=== PATIENT | female | born 1990 | race Caucasian/White ===

== ENCOUNTER 2016-09-08 15:28 | Emergency (ER) | payer MEDICAID ==
--- NOTE | 2016-09-08 15:51 | ER Document Report ---
ED Medical Screen (RME) - General Stated Complaint: POSSIBLE FLU Notes: 26 yo female with flu like symptoms x 4 days. no fever, + bodyaches and cough. 9 wks . TRAVEL OUTSIDE OF THE [place] IN LAST 30 DAYS: No - Related Data Allergies/Adverse Reactions: No Known Allergies Allergy (Verified 05/08/15 12:32) Past Medical History - Immunizations Hx Diphtheria, Pertussis, Tetanus Vaccination: Yes Physical Exam - Vital signs Vitals: Temp Pulse Resp BP Pulse Ox 99.6 F 104 H 14 108/64 100 09/08/16 15:40 09/08/16 15:40 09/08/16 15:40 09/08/16 15:40 09/08/16 15:40 Course - Vital Signs Vital signs: Temp Pulse Resp BP Pulse Ox 99.6 F 104 H 14 108/64 100 09/08/16 15:40 09/08/16 15:40 09/08/16 15:40 09/08/16 15:40 09/08/16 15:40
--- NOTE | 2016-09-08 17:07 | ER Document Report ---
HPI - HPI Patient complains to provider of: cough, bodayaches Onset: Other - since tuesday Onset/Duration: Gradual Quality of pain: Achy Pain Level: 4 Context: 26 yo female 9 weeks is c/o head congestion, cough, no fever since tuesday. No abd. pain or vaginal bleeding. No dusuria. Associated Symptoms: None Exacerbated by: Denies Relieved by: Denies Similar symptoms previously: Yes Recently seen / treated by doctor: No - ROS ROS below otherwise negative: Yes Systems Reviewed and Negative: Yes All other systems reviewed and negative - REPRODUCTIVE LMP: Reproductive: REPORTS: : - DERM Skin Color: Normal Past Medical History - General Information source: Patient - Social History Smoking Status: Never Smoker Chew tobacco use (# tins/day): No Drug Abuse: None Lives with: Spouse/Significant other Family History: Reviewed & Not Pertinent Patient has suicidal ideation: No Patient has homicidal ideation: No - Medical History Medical History: Negative Renal/ Medical History: Denies: Hx Peritoneal Dialysis Surgical Hx: Negative - Immunizations Hx Diphtheria, Pertussis, Tetanus Vaccination: Yes Hx Pneumococcal Vaccination: 07/25/00 Vertical Provider Document - CONSTITUTIONAL Agree With Documented VS: Yes Exam Limitations: No Limitations General Appearance: No Apparent Distress - INFECTION CONTROL TRAVEL OUTSIDE OF THE [place] IN LAST 30 DAYS: No - HEENT HEENT: Normocephalic, PERRLA, Pharyngeal Erythema. negative: Conjuctival Injection, Tympanic Membrane Red, Tympanic Membrane Bulging - NECK Neck: Supple. negative: Lymphadenopathy-Left, Lymphadenopathy-Right - RESPIRATORY Respiratory: Breath Sounds Normal, No Respiratory Distress O2 Sat by Pulse Oximetry: 100 - CARDIOVASCULAR Cardiovascular: Regular Rate, Regular Rhythm - GI/ABDOMEN Gastrointestinal: Abdomen Soft, Abdomen Non-Tender, No Organomegaly - MUSCULOSKELETAL/EXTREMETIES Musculoskeletal/Extremeties: MAJOHNATHAN, FROM - NEURO Level of Consciousness: Awake, Alert - DERM Integumentary: Warm, Dry, No Rash Course - Vital Signs Vital signs: Temp Pulse Resp BP Pulse Ox 99.6 F 104 H 14 108/64 100 09/08/16 15:40 09/08/16 15:40 09/08/16 15:40 09/08/16 15:40 09/08/16 15:40 Discharge - Discharge Clinical Impression: upper respiratory infection, Condition: Good Disposition: HOME, SELF-CARE Instructions: Acetaminophen, Upper Respiratory Illness ([facility]), 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
[2016-09-08 18:07] VITALS: BP 120/70
== END 2016-09-08 18:10 | disposition home or self-care (01) ==
LOC: ER 15:28
DX: O26.91 Pregnancy related conditions, unspecified, first trimester (principal); J06.9 Acute upper respiratory infection, unspecified; M79.1 Myalgia; Z3A.09 9 weeks gestation of pregnancy
CPT/HCPCS: 99283

== ENCOUNTER 2017-03-02 11:58 | Outpatient (CLI) | payer MEDICAID ==
[2017-03-02 12:55] LABS: APPEARANCE,URINE CLEAR; BILIRUBIN,URINE NEGATIVE (NEGATIVE); GLUCOSE, URINE NEGATIVE (NEGATIVE); KETONES,URINE NEGATIVE (NEGATIVE); LEUKOCYTE ESTERASE,URINE TRACE (NEGATIVE); NITRITE,URINE NEGATIVE (NEGATIVE); PROTEIN,URINE NEGATIVE (NEGATIVE); URINE SPECIFIC GRAVITY 1.002; UROBILINOGEN,URINE NEGATIVE mg/dL (<2.0)
[2017-03-02 13:10] LABS: URINE BARBITURATES SCREEN NEGATIVE; URINE METHADONE SCREEN NEGATIVE; URINE OPIATES LOW NEGATIVE; URINE PHENCYCLIDINE SCREEN NEGATIVE
[2017-03-02] MEDS ORDERED: ACETAMINOPHEN 325 MG TABLET PO ONE (14:36)
[2017-03-02] MEDS ORDERED: ACETAMINOPHEN 325 MG TABLET ONE (14:47)
--- NOTE | 2017-03-02 14:59 | Non Stress Test Report ---
Non Stress Test Datetime Report Generated by CPN: 03/02/2017 14:59 DEMOGRAPHIC EGA NST: 33.3 INDICATION Indication for Study: Ordered by Provider Indication for Study (NST) Other: labor check MONITORING Monitor Explained: Monitor Explained; Test Explained; Patient Verbalized Understanding Time on Monitor: 03/02/2017 12:30 Time off Monitor: 03/02/2017 14:36 NST Duration: 126 NST INTERVENTIONS NST Interventions: PO Hydration; Reposition Patient Physician Notified NST: PPeter Salguero CNM BABY A: [id number] BABY A Movement : Present Contraction Frequency : rare FHR Baseline : 135 Accelerations : 15X15 Decelerations : None Variability : Moderate 6-25bpm NST Review: Meets Criteria for Reactive NST NST Review and Verified By : Laurel Jack RN NST Results: Reactive NST COMMENTS NST Comments: Per P. Salguero CNM ok to d/c NST REPORT Report Trigger: Send Report
== END 2017-03-02 15:03 | disposition home or self-care (01) ==
LOC: LC 11:58
PROVIDERS: ATTEND Obstetrics & Gynecology
PROC: 4A1HXCZ Monitoring of Products of Conception, Cardiac Rate, External Approach (ICD-10-PCS; principal; 2017-03-02)
DX: O47.03 False labor before 37 completed weeks of gestation, third trimester (principal); Z3A.33 33 weeks gestation of pregnancy
CPT/HCPCS: 59025; 87210; 81001; 80307; Q0114; J3490

== ENCOUNTER 2017-04-07 19:15 | Outpatient (CLI) | payer MEDICAID ==
[2017-04-07 19:46] LABS: APPEARANCE,URINE SLIGHTLY-CLOUDY; BILIRUBIN,URINE NEGATIVE (NEGATIVE); GLUCOSE, URINE NEGATIVE (NEGATIVE); KETONES,URINE NEGATIVE (NEGATIVE); LEUKOCYTE ESTERASE,URINE MODERATE (NEGATIVE); NITRITE,URINE NEGATIVE (NEGATIVE); PROTEIN,URINE NEGATIVE (NEGATIVE); UROBILINOGEN,URINE NEGATIVE mg/dL (<2.0)
[2017-04-07 20:08] LABS: URINE BARBITURATES SCREEN NEGATIVE; URINE METHADONE SCREEN NEGATIVE; URINE OPIATES LOW NEGATIVE; URINE PHENCYCLIDINE SCREEN NEGATIVE
[2017-04-07 20:09] LABS: AMNISURE (ROM) NEGATIVE (NEGATIVE)
== END 2017-04-07 20:52 | disposition home or self-care (01) ==
LOC: LC 19:15
PROVIDERS: ATTEND Student in an Organized Health Care Education/Training Program
PROC: 4A1HXCZ Monitoring of Products of Conception, Cardiac Rate, External Approach (ICD-10-PCS; principal; 2017-04-07)
DX: Z34.93 Encounter for supervision of normal pregnancy, unspecified, third trimester (principal); Z36 Encounter for antenatal screening of mother; Z3A.37 37 weeks gestation of pregnancy
CPT/HCPCS: 59025; 80307; 81005; 84112

== ENCOUNTER 2017-04-19 03:32 | Inpatient (IN) | payer MEDICAID ==
[2017-04-19] MEDS ORDERED: LIDOCAINE 1% INJ-PF (10 MG/ML) 30 ML SDV ONE (03:46)
[2017-04-19] MEDS ORDERED: OXYTOCIN/NORMAL SALINE 0 UNIT/0 ML RTUINJ ONE (03:46)
[2017-04-19] MEDS ORDERED: MISOPROSTOL 0.2 MG TABLET ONE (03:46)
[2017-04-19] MEDS ORDERED: PENICILLIN G-K 5 MILLION UNIT VIAL ONE (03:46)
[2017-04-19] MEDS ORDERED: OXYTOCIN 10 UNIT/ML VIAL ONE (03:47)
[2017-04-19] MEDS ORDERED: ACETAMINOPHEN WITH CODEINE #3 TABLET ONE (04:27)
[2017-04-19] MEDS ORDERED: IBUPROFEN 800 MG TABLET ONE (04:27)
[2017-04-19] MEDS ORDERED: NA PHOS,M-B/NA PHOS,DI-BA (ADULT) 133 ML ENEMA PR PRN (04:31)
[2017-04-19] MEDS ORDERED: ACETAMINOPHEN WITH CODEINE #3 TABLET PO PRN ×2 (04:31)
[2017-04-19] MEDS ORDERED: DIPHENHYDRAMINE HCL 25 MG CAPSULE PO PRN (04:31)
[2017-04-19] MEDS ORDERED: OXYTOCIN/NORMAL SALINE 20 UNIT/1,000 ML RTUINJ IV PRN (04:31)
[2017-04-19] MEDS ORDERED: PROMETHAZINE HCL 25 MG TABLET PO PRN (04:31)
[2017-04-19] MEDS ORDERED: ZOLPIDEM TARTRATE 5 MG TABLET PO PRN (04:31)
[2017-04-19] MEDS ORDERED: PSEUDOEPHEDRINE HCL 30 MG TABLET PO PRN (04:31)
[2017-04-19] MEDS ORDERED: GLYCERIN/WITCH HAZEL LEAF 1 EACH MED..PAD TP PRN (04:31)
[2017-04-19] MEDS ORDERED: ACETAMINOPHEN 650 MG SUPP.RECT PR PRN (04:31)
[2017-04-19] MEDS ORDERED: PROMETHAZINE HCL 25 MG SUPP.RECT PR PRN (04:31)
[2017-04-19] MEDS ORDERED: MAGNESIUM HYDROXIDE SUSP 30 ML UDCUP PO PRN (04:31)
[2017-04-19] MEDS ORDERED: DIBUCAINE 1% OINTMENT 28 GM TP PRN (04:31)
[2017-04-19] MEDS ORDERED: PROMETHAZINE HCL INJ 25 MG/1 ML VIAL IV PRN (04:31)
[2017-04-19] MEDS ORDERED: DIPH/PERTUSS(ACELL)/TETANUS VAC/PF 0.5 ML SYR (>=10YO) IM PRN (04:31)
[2017-04-19] MEDS ORDERED: BENZOCAINE/MENTHOL AEROSOL SPRAY 56 ML TOP PRN (04:31)
[2017-04-19] MEDS ORDERED: MEASLES,MUMPS&RUBELLA VACC/PF 0.5 ML VIAL SUBCUT PRN (04:31)
[2017-04-19 04:34] LABS: ABSOLUTE EOSINOPHILS # (AUTO) 0.1 10^3/uL (0.0-0.6); ABSOLUTE MONOCYTES (AUTO) 0.9 10^3/uL (0.1-1.4); ABSOLUTE NEUT (AUTO) 4.7 10^3/uL (1.7-8.2); BASOPHILS % (AUTO) 0.4 % (0-2); EOSINOPHILS % (AUTO) 1.2 % (0-6); HEMOGLOBIN 13.4 g/dL (12.0-15.5); HGB HCT DIFFERENCE 0.2; LYMPHOCYTES % (AUTO) 41.1 % (13-45); MEAN CORPUSCULAR HEMOGLOBIN 27.8 pg (27.0-33.4); MEAN CORPUSCULAR HGB CONC 33.4 g/dL (32.0-36.0); MEAN CORPUSCULAR VOLUME 83 fl (80-97); MONOCYTES % (AUTO) 9.4 % (3-13); SEGMENTED NEUTROPHILS % (AUTO) 47.9 % (42-78); WHITE BLOOD COUNT 9.7 10^3/uL (4.0-10.5)
--- NOTE | 2017-04-19 06:17 | Admission Physical ---
Datetime Report Generated by CPN: 04/19/2017 06:17 CURRENT ADMISSION Chief Complaint: Uterine Contractions Indication for Induction: Not Applicable Admit Plan: Admit to Unit; Initiate Labor Protocol ALLERGIES Medication Allergies: No Medication Allergies: No Known Allergies (05/08/2015) Latex: No Latex Allergies Food Allergies: None Environmental Allergies: N/A OBSTETRICAL HISTORY EDC: 04/17/2017 00:00 (Annotations: Data stored by N on behalf of user) : 3 Para: 2 Term: 2 : 0 SAB: 0 IAB: 0 Ectopic: 0 Livin Gestational Diabetes: No Rh Sensitization: No Incompetent Cervix: No WAN: No Infertility: No ART Treatment: No Uterine Anomaly: No IUGR: No Hx Previous C/S: No Macrosomia: No Hx Loss/Stillborn: No PIH: No Hx : No Placenta Previa/Abruption: No Depression/PP Depression: Yes PTL/PROM: No Post Hemorrhage: No Current Procedures: Ultrasound; NST Obstetrical History Comments: G1- 2011 38 weeks No complications G2- 2014 38 weeks, , No complications G3- current SEE RECORDS Alcohol: No Marijuana : No Cocaine: No Other Illicit Drugs: No Cigarettes: Former Smoker. 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 Surgery: No Heart Disease: No Hosp/Surgery: No Autoimmune Disorder: No Anesthetic Complications: No Kidney Disease: No Abnormal Pap Smear: No Neuro/Epilepsy: No Psychiatric Disorders: No Other Medical Diseases: No Hepatitis/Liver Disease: No Significant Family History: No Varicosities/Phlebitis: No Trauma/Violence : No Thyroid Dysfunction: No Medical History Comments: Hx asthma-no meds;Hx of anorexia INFECTIOUS HISTORY Gonorrhea: No Genital Herpes: No Chlamydia: No Tuberculosis: No Syphilis: No Hepatitis: No HIV/AIDS Exposure: No Rash or Viral Illness: No HPV: No PHYSICAL EXAM General: Normal HEENT: Normal Neurologic: Normal Thyroid: Normal Heart: Normal Lungs: Normal Breast: Deferred Back: Normal Abdomen: Normal Genitourinary Exam: Normal Extremities: Normal DTRs: Normal Pelvic Type: Adequate Vital Signs: Reviewed VAGINAL EXAM Dilatation: 7 Effacement: 90 Station: 2 MEMBRANES Membranes: Ruptured Amniotic Fluid Color: Meconium, Light FETUS A EGA: 40.2 Monitoring: External US FHR- Baseline: 125 Variability: Moderate 6-25bpm Accelerations: 15X15 Decelerations: None Presentation: Vertex Admit Comment: 27yo at 40+2ega presents via ER for OB emergency. Not on eval in ER and pt brought to L_D for assessment. Cvx on arrival /+2. Pt SROM upon transfer to bed and light to moderate meconium noted. Pt quickly changed to AL/c/+2 and desired to push. AL reduced and pt delivered - see delivery note. GBS pos - unable to obtain PCN for GBS prophy - Nursery made aware and present at delivery. H/o anorexia and h/o depression. Currently on Buspar 10mg. H/o Asthma. PLANS FOR LABOR AND DELIVERY Labor and Delivery: None Pain Management: Epidural Feeding Preference: Breast Benefit of Breast Feed Discussed: Yes Circumcision: Yes INFORMED CONSENT Informed Consent Obtained: Vaginal Delivery; Risks, Benefits and Alternatives Discussed Signature: with User ID: [email or web address]
--- NOTE | 2017-04-19 06:37 | Delivery Summary ---
Del Sum A-C Datetime Report Generated by CPN: 04/19/2017 06:37 DELIVERY PERSONNEL DELIVERY PERSONNEL: [id number] Delivery Doctor:: Prema Langford MD Labor and Delivery Nurse:: Quynh Mariee RN Labor and Delivery Nurse:: Jodi Benítez RN Nursery Nurse:: Alisson Lauren RN Meat Team Lead/TRANSFORMATION MANAGER: Koffi Flores, TRANSFORMATION MANAGER MATERNAL INFORMATION Delivery Anesthesia: None Medications After Delivery: Pitocin 10 Units IM Estimated Blood Loss (ml): 250 Maternal Complications: Precipitous Labor (<3hrs) Provider Comments: VMI delivered in MCKAYLA presentation. Very tight body cord delivered through. Shoulders and body delivered w/o difficulty. Cord doubly clamped and cut and infant to warmer for NRP due to meconium. Placenta delivered intact spontaneously. Uterine exploration negative for retained POC. FF at U. Good hemostasis after repair. Mother and baby stable upon provider leaving the room. LABOR SUMMARY EDC: 04/17/2017 00:00 (Annotations: Data stored by [facility] on behalf of user) No. Babies in Womb: 1 Attempted: No Labor Anesthesia: None LABOR INFORMATION Reason for Induction: Not Applicable Onset of Labor: 04/19/2017 01:00 Complete Dilatation: 04/19/2017 03:51 Oxytocin: N/A Group B Beta Strep: Positive Antibiotics # of Doses: 0 Steroids Given: None Reason Steroids Not Administered: Not Applicable MEMBRANES Membranes Rupture Method: Spontaneous Rupture of Membranes: 04/19/2017 03:38 Length of Rupture (hr): 0.30 Amniotic Fluid Color: Moderate Meconium Amniotic Fluid Amount: Small Amniotic Fluid Odor: Normal STAGES OF LABOR Stage 1 hr: 2 Stage 1 min: 51 Stage 2 hr: 0 Stage 2 min: 5 Stage 3 hr: 0 Stage 3 min: 3 Total Time in Labor hr: 2 Total Time in Labor min: 59 VAGINAL DELIVERY Episiotomy: None Laceration Extension: First Degree Laceration Type: Perineal Laceration Repair: Yes Laceration Repair Note: 1st degree ML perineal laceration repaired for hemostasis. Sponge Count Correct: Yes Sharps Count Correct: Yes CSECTION DELIVERY Primary Indication: N/A Secondary Indication: N/A CSection Incidence: N/A Labor: N/A Elective: N/A CSection Incision: N/A BABY A INFORMATION Delivery Date/Time: 04/19/2017 03:56 Method of Delivery: Vaginal Born in Route : No : N/A Forceps: N/A Vacuum Extraction: N/A Shoulder Dystocia : No PRESENTATION/POSITION BABY A Presentation: Cephalic Cephalic Presentation: Vertex Vertex Position: Left Occipital Anterior Breech Presentation: N/A PLACENTA INFORMATION BABY A Placenta Delivery Time : 04/19/2017 03:59 Placenta Method of Delivery: Spontaneous Placenta Status: Delivered SCORES BABY A Heart Rate 1 min: >100 bpm Resp Effort 1 min: Good Cry Reflex Irritability 1 min: Cough or Sneeze or Pulls Away Muscle Tone 1 min: Active Motion Color 1 min: Body Herminie, Extremities Blue Resuscitation Effort 1 min: Tactile Stimulation SCORE 1 MIN: 9 Heart Rate 5 min: >100 bpm Resp Effort 5 min: Good Cry Reflex Irritability 5 min: Cough or Sneeze or Pulls Away Muscle Tone 5 min: Active Motion Color 5 min: Body Herminie, Extremities Blue SCORE 5 MIN: 9 INFORMATION BABY A Gestational Age at Delivery: 40.2 Gestational Status: Full Term- 39- 40.6 Weeks Infant Outcome : Liveborn Infant Condition : Stable Infant Sex: Male IDENTIFICATION BABY A Verification Date/Time: 04/19/2017 04:12 ID Band Number: [id number] Mother's Name Verified: Yes Infant RN Verifying Infant: R Antonio, RNC Additional Verifying Personnel: C Manuel, RN WEIGHT/LENGTH BABY A Birthweight (gm): 3535 Infant Weight (lb): 7 Weight (oz): 13 Length (in): 20.25 Infant Length (cm): 51.44 CORD INFORMATION BABY A No. Cord Vessels: 3 Nuchal Cord : N/A Nuchal Cord- Other: tight body cord Cord Blood Taken: Yes-For Eval (Mom's Blood Type - or O+) Suction: Mouth; Nose ASSESSMENT BABY A Infant Complications: Meconium Physical Findings at Delivery: Within Normal Limits Respirations: Appears Normal Skin to Skin: No Forming Machine Upkeep Mechanic/ALS Called : No Infant Care By: S Mayen RN, K Jeyson RN Transferred To: Remains with Mother BABY B INFORMATION : N/A SIGNATURES Signature: with User ID: [email or web address]
[2017-04-19] MEDS ORDERED: BUSPIRONE HCL 10 MG TABLET PO ONE (06:45)
--- NOTE | 2017-04-19 08:58 | PDOC PROGRESS REPORT ---
Subjective-OB Subjective: Post Delivery Day: 0 27 year old. Denies any needs at this time, doing well, voiding without difficulty, pain well controlled, lochia is stable. Physical Exam (OB) - Lochia Lochia Amount: Small 10-25 ml Lochia Color: Rubra/Red - Abdomen Description: Tender, Soft, Round Hernia Present: No Fundal Description: Firm, Midline Fundal Height: u/u - u/2 Objective-Diagnostic Laboratory: 04/19/17 03:35 04/19/17 04/19/17 03:35 03:35 WBC 9.7 RBC 4.80 Hgb 13.4 Hct 40.0 MCV 83 MCH 27.8 MCHC 33.4 RDW 15.0 H Plt Count 307 Seg Neutrophils % 47.9 Lymphocytes % 41.1 Monocytes % 9.4 Eosinophils % 1.2 Basophils % 0.4 Absolute Neutrophils 4.7 Absolute Lymphocytes 4.0 Absolute Monocytes 0.9 Absolute Eosinophils 0.1 Absolute Basophils 0.0 Blood Type O POSITIVE Antibody Screen NEGATIVE Assessment and Plan(PN) - Assessment and Plan (1) Normal vaginal delivery Is this a current diagnosis for this admission?: Yes Plan: routine pp care - Time Spent with Patient Time with patient: Less than 15 minutes Critical Time spent with patient: Less than 15 minutes Medications reviewed and adjusted accordingly: Yes - Disposition Anticipated Discharge: Home Within: within 24 hours
[2017-04-19 09:03] LABS: APPEARANCE,URINE CLEAR; BILIRUBIN,URINE NEGATIVE (NEGATIVE); GLUCOSE, URINE NEGATIVE (NEGATIVE); KETONES,URINE NEGATIVE (NEGATIVE); LEUKOCYTE ESTERASE,URINE NEGATIVE (NEGATIVE); NITRITE,URINE NEGATIVE (NEGATIVE); PROTEIN,URINE NEGATIVE (NEGATIVE); URINE SPECIFIC GRAVITY 1.005; UROBILINOGEN,URINE NEGATIVE mg/dL (<2.0)
[2017-04-19 09:06] LABS: URINE BARBITURATES SCREEN NEGATIVE; URINE METHADONE SCREEN NEGATIVE; URINE PHENCYCLIDINE SCREEN NEGATIVE
[2017-04-19 09:33] LABS: URINE OPIATES LOW UNCONFIRMED POSITIVE
[2017-04-19] MEDS: IBUPROFEN 800 MG TABLET PO SCH ×3 (09:52→21:21)
[2017-04-19] MEDS: PRENATAL VITAMIN W-O CA NO5/FE FUMARATE/FA CAPSULE PO SCH (09:53)
[2017-04-19] MEDS: DOCUSATE SODIUM 100 MG CAPSULE PO SCH ×2 (09:54→17:50)
[2017-04-19] MEDS: FERROUS SULFATE 325 MG TABLET PO SCH ×2 (09:54→17:50)
[2017-04-19] MEDS: SENNOSIDES/DOCUSATE 8.6-50 MG 1 EACH TABLET PO SCH (09:54)
[2017-04-19] MEDS: FAMOTIDINE 20 MG TABLET PO SCH ×2 (10:59→21:22)
[2017-04-19] MEDS: BUSPIRONE HCL 10 MG TABLET PO SCH ×2 (13:15→21:22)
[2017-04-20] MEDS: IBUPROFEN 800 MG TABLET PO SCH ×3 (05:06→21:38)
[2017-04-20] MEDS: BUSPIRONE HCL 10 MG TABLET PO SCH ×3 (05:06→21:38)
[2017-04-20 07:27] LABS: HEMATOCRIT 37.4 % (36.0-47.0); HEMOGLOBIN 12.5 g/dL (12.0-15.5); HGB HCT DIFFERENCE 0.1; MEAN CORPUSCULAR HEMOGLOBIN 27.9 pg (27.0-33.4); MEAN CORPUSCULAR HGB CONC 33.4 g/dL (32.0-36.0); MEAN CORPUSCULAR VOLUME 84 fl (80-97); RED BLOOD COUNT 4.47 10^6/uL (3.72-5.28); RED CELL DISTRIBUTION WIDTH 15.2 % (11.5-14.0); WHITE BLOOD COUNT 7.1 10^3/uL (4.0-10.5)
[2017-04-20] MEDS: PRENATAL VITAMIN W-O CA NO5/FE FUMARATE/FA CAPSULE PO SCH (09:22)
[2017-04-20] MEDS: FAMOTIDINE 20 MG TABLET PO SCH ×2 (09:22→21:38)
[2017-04-20] MEDS: FERROUS SULFATE 325 MG TABLET PO SCH ×2 (09:22→17:12)
[2017-04-20] MEDS: DOCUSATE SODIUM 100 MG CAPSULE PO SCH ×2 (09:22→17:12)
[2017-04-20] MEDS: SENNOSIDES/DOCUSATE 8.6-50 MG 1 EACH TABLET PO SCH (09:22)
--- NOTE | 2017-04-20 13:59 | PDOC PROGRESS REPORT ---
Subjective-OB Subjective: Post Delivery Day: 27 year old. Denies any needs at this time. Pt reports light bleeding, regular diet, voiding well no concerns. Physical Exam (OB) Vital Signs: Temp Pulse Resp BP Pulse Ox 97.5 F 67 14 110/76 100 04/20/17 07:57 04/20/17 07:57 04/20/17 07:57 04/20/17 07:57 04/20/17 07:57 Intake & Output 04/19/17 04/20/17 04/21/17 06:59 06:59 06:59 Intake Total 400 500 Balance 400 500 Weight 68.946 kg - Lochia Lochia Amount: Scant < 10 ml Lochia Color: Rubra/Red - Abdomen Description: Tender, Soft Hernia Present: No Fundal Description: Firm, Midline Fundal Height: u/u - u/2 Objective-Diagnostic Laboratory: 04/20/17 06:48 04/20/17 06:48 WBC 7.1 RBC 4.47 Hgb 12.5 Hct 37.4 MCV 84 MCH 27.9 MCHC 33.4 RDW 15.2 H Plt Count 262 Assessment and Plan(PN) - Assessment and Plan (1) Normal vaginal delivery Is this a current diagnosis for this admission?: Yes - Time Spent with Patient Time with patient: Less than 15 minutes Medications reviewed and adjusted accordingly: Yes - Disposition Anticipated Discharge: Home Within: within 24 hours
[2017-04-21] MEDS: IBUPROFEN 800 MG TABLET PO SCH (05:33)
[2017-04-21] MEDS: BUSPIRONE HCL 10 MG TABLET PO SCH (05:34)
[2017-04-21] MEDS ORDERED: BENZONATATE 100 MG CAPSULE PO ONE (09:00)
--- NOTE | 2017-04-21 09:50 | PDOC DISCHARGE SUMMARY ---
Final Diagnosis Discharge Date: 04/21/17 - Final Diagnosis (1) Normal vaginal delivery Is this a current diagnosis for this admission?: Yes Discharge Data - Discharge Medication Home Medications: Pnv W-O Ca No5/Fe Fumarate/FA [-U Multiple Vitamin Capsule] 1 each PO DAILY 10/24/11 Buspirone HCl [Buspar 10 mg Tablet] 15 mg PO TID 03/02/17 Docusate Sodium [Colace 100 mg Capsule] 100 mg PO BID #60 capsule 04/21/17 Ibuprofen [Motrin 800 mg Tablet] 800 mg PO Q8 #60 tablet 04/21/17 Gestational Age: 40.2 Reason(s) for Admission: Onset of Labor, Group B Strep Positive Procedures: NST Intrapartum Procedure(s): Spontaneous Vaginal Delivery - Data Baby 1 Male at 1 minute: 9 at 5 minutes: 9 Weight: 3535 kg Home with Mother: Yes Complications: No - Diagnosis Test Laboratory: Temp Pulse Resp BP Pulse Ox 97.9 F 72 15 111/76 100 04/21/17 07:31 04/21/17 07:31 04/21/17 07:31 04/21/17 07:31 04/21/17 07:31 04/19/17 04/19/17 04/20/17 03:35 08:30 06:48 RBC 4.80 4.47 Hgb 13.4 12.5 Hct 40.0 37.4 Urine Opiates Screen UNCONFIRMED POSITIVE - Discharge information/Instructions Discharge Activity: Activity As Tolerated, Pelvic Rest, No tub bath Discharge Diet: Regular Disposition: HOME, SELF-CARE Follow up with: [facility] in: 4, Weeks
[2017-04-21] MEDS: SENNOSIDES/DOCUSATE 8.6-50 MG 1 EACH TABLET PO SCH (09:57)
[2017-04-21] MEDS: DOCUSATE SODIUM 100 MG CAPSULE PO SCH (09:57)
[2017-04-21] MEDS: FERROUS SULFATE 325 MG TABLET PO SCH (09:57)
[2017-04-21] MEDS: PRENATAL VITAMIN W-O CA NO5/FE FUMARATE/FA CAPSULE PO SCH (09:57)
[2017-04-21] MEDS: FAMOTIDINE 20 MG TABLET PO SCH (09:58)
[2017-04-21 11:26] VITALS: BP 109/76
== END 2017-04-21 12:25 | disposition home or self-care (01) | DRG 775 ==
LOC: LC 03:32 → LR 03:43 → 2S 06:16
PROVIDERS: ADMIT Student in an Organized Health Care Education/Training Program; ATTEND Student in an Organized Health Care Education/Training Program
PROC: 10E0XZZ Delivery of Products of Conception, External Approach (ICD-10-PCS; principal; 2017-04-19)
PROC: 0HQ9XZZ Repair Perineum Skin, External Approach (ICD-10-PCS; 2017-04-19)
DX: O62.3 Precipitate labor (principal); O69.2XX0 Labor and delivery complicated by other cord entanglement, with compression, not applicable or unspecified; O77.0 Labor and delivery complicated by meconium in amniotic fluid; O99.824 Streptococcus B carrier state complicating childbirth; O70.0 First degree perineal laceration during delivery; O75.89 Other specified complications of labor and delivery; J45.998 Other asthma; O99.344 Other mental disorders complicating childbirth; F32.9 Major depressive disorder, single episode, unspecified; Z3A.40 40 weeks gestation of pregnancy; Z37.0 Single live birth; Z87.891 Personal history of nicotine dependence
CPT/HCPCS: 36415; 80307; 81005; 85025; 85027; 86592; 86850; 86900; 86901; 90715; J2540; J2590; J3490

== ENCOUNTER 2018-08-22 11:58 | Outpatient (CLI) | payer MEDICAID ==
--- NOTE | 2018-08-22 12:55 | Non Stress Test Report ---
Non Stress Test Datetime Report Generated by CPN: 08/22/2018 12:55 DEMOGRAPHIC EGA NST: 37.3 INDICATION Indication for Study: Intrauterine Growth Restriction VITAL SIGNS Temperature - NST: 98.0 Pulse - NST: 85 RESP - NST: 16 NBPSYS NST: 109 NBPDIA NST: 65 MONITORING Monitor Explained: Monitor Explained; Test Explained; Patient Verbalized Understanding Time on Monitor: 08/22/2018 12:06 Time off Monitor: 08/22/2018 12:29 NST Duration: 23 NST INTERVENTIONS NST Interventions: PO Hydration Physician Notified NST: Dr. Sabas BABY A: [id number] BABY A Movement : Present Contraction Frequency : none FHR Baseline : 145 Accelerations : 15X15 Decelerations : None Variability : Moderate 6-25bpm NST Review: Meets Criteria for Reactive NST NST Review and Verified By : Violet Becker RN NST Results: Reactive NST REPORT Report Trigger: Send Report
== END 2018-08-22 12:50 | disposition home or self-care (01) ==
LOC: LC 11:58
PROVIDERS: ATTEND Obstetrics & Gynecology
PROC: 4A1HXCZ Monitoring of Products of Conception, Cardiac Rate, External Approach (ICD-10-PCS; principal; 2018-08-22)
DX: O36.5930 Maternal care for other known or suspected poor fetal growth, third trimester, not applicable or unspecified (principal); Z3A.37 37 weeks gestation of pregnancy
CPT/HCPCS: 59025

== ENCOUNTER 2018-09-07 07:12 | Inpatient (IN) | payer MEDICAID ==
[2018-09-07] MEDS ORDERED: OXYTOCIN/NORMAL SALINE 20 UNIT/1,000 ML RTUINJ IV PRN ×5 (07:34→18:53)
[2018-09-07] MEDS ORDERED: RINGERS SOLUTION,LACTATED 300 ML IV ONE (07:34)
[2018-09-07] MEDS ORDERED: RINGERS SOLUTION,LACTATED 1,000 ML IV ONE (07:34)
[2018-09-07] MEDS ORDERED: RINGERS SOLUTION,LACTATED 1,000 ML IV PRN (07:34)
[2018-09-07] MEDS: RINGERS SOLUTION,LACTATED 1,000 ML IV PRN ×2 (08:00→16:13)
[2018-09-07] MEDS ORDERED: MISOPROSTOL 0.2 MG TABLET ONE (08:01)
[2018-09-07] MEDS ORDERED: OXYTOCIN/NORMAL SALINE 20 UNIT/1,000 ML RTUINJ ONE (08:01)
[2018-09-07] MEDS ORDERED: LIDOCAINE 1% INJ-PF (10 MG/ML) 30 ML SDV ONE (08:01)
--- NOTE | 2018-09-07 08:19 | Admission Physical ---
Datetime Report Generated by CPN: 09/07/2018 08:19 CURRENT ADMISSION Chief Complaint: Scheduled Induction of Labor Indication for Induction: IUGR Admit Impression : Term, Intrauterine Admit Plan: Admit to Unit; Initiate Labor Induction Protocol ALLERGIES Medication Allergies: No Medication Allergies: No Known Allergies (05/08/2015) Latex: No Latex Allergies Food Allergies: n/a Environmental Allergies: n/a OBSTETRICAL HISTORY EDC: 09/09/2018 00:00 : 4 Para: 3 Term: 3 : 0 SAB: 0 IAB: 0 Ectopic: 0 Livin Cesareans: 0 VBACs: 0 Multiple Births: 0 Gestational Diabetes: No Rh Sensitization: No Incompetent Cervix: No WAN: No Infertility: No ART Treatment: No Uterine Anomaly: No IUGR: Yes Hx Previous C/S: No Macrosomia: No Hx Loss/Stillborn: No PIH: No Hx : No Placenta Previa/Abruption: No Depression/PP Depression: Yes PTL/PROM: No Post Hemorrhage: No Current Procedures: Ultrasound; NST Obstetrical History Comments: G1- 39 WKS G2- 39.2 WKS G3- 40 WKS G4-CURRENT SEE RECORDS Alcohol: No Cocaine: No Other Illicit Drugs: No Cigarettes: Never Smoker. 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 Surgery: No Heart Disease: No Hosp/Surgery: Yes Autoimmune Disorder: No Anesthetic Complications: No Kidney Disease: No Abnormal Pap Smear: No Neuro/Epilepsy: No Psychiatric Disorders: No Other Medical Diseases: No Hepatitis/Liver Disease: No Significant Family History: No Varicosities/Phlebitis: No Trauma/Violence : No Thyroid Dysfunction: No Medical History Comments: mild depression takes meds, childbirth INFECTIOUS HISTORY Gonorrhea: No Genital Herpes: No Chlamydia: No Tuberculosis: No Syphilis: No Hepatitis: No HIV/AIDS Exposure: No Rash or Viral Illness: No HPV: No PHYSICAL EXAM General: Normal HEENT: Normal Neurologic: Normal Thyroid: Normal Heart: Normal Lungs: Normal Breast: Normal Back: Normal Abdomen: Normal Genitourinary Exam: Normal Extremities: Normal DTRs: Normal Pelvic Type: Adequate Vital Signs: Reviewed VAGINAL EXAM Contraction Comments: occassional MEMBRANES Membranes: Intact FETUS A EGA: 39.5 Monitoring: External US FHR- Baseline: 140 Variability: Moderate 6-25bpm Accelerations: 15X15 Decelerations: None FHR Category: Category I Admit Comment: presents for IOL at 39.5 wks due to IUGR. GBS negative. Pitocin started. Pt does plan an epidural when she gets into active labor. Plan AROM once contractions are regular. Vtx on Leapold's. Attending MD is Dr Trejo PLANS FOR LABOR AND DELIVERY Labor and Delivery: None Pain Management: Epidural Feeding Preference: Breast Benefit of Breast Feed Discussed: Yes Circumcision: N/A INFORMED CONSENT Assignment: Gerda Luther MD Signature: with User ID: [email or web address] : with User ID: [email or web address]
[2018-09-07 08:34] LABS: ABSOLUTE LYMPHOCYTES (AUTO) 1.7 10^3/uL (0.5-4.7); ABSOLUTE MONOCYTES (AUTO) 0.7 10^3/uL (0.1-1.4); ABSOLUTE NEUT (AUTO) 8.3 10^3/uL (1.7-8.2); BASOPHILS % (AUTO) 0.4 % (0-2); EOSINOPHILS % (AUTO) 0.3 % (0-6); HEMATOCRIT 36.4 % (36.0-47.0); LYMPHOCYTES % (AUTO) 15.5 % (13-45); MEAN CORPUSCULAR HEMOGLOBIN 26.6 pg (27.0-33.4); MEAN CORPUSCULAR VOLUME 80 fl (80-97); MONOCYTES % (AUTO) 6.6 % (3-13); PLATELET COUNT 323 10^3/uL (150-450); RED BLOOD COUNT 4.53 10^6/uL (3.72-5.28); RED CELL DISTRIBUTION WIDTH 14.4 % (11.5-14.0); SEGMENTED NEUTROPHILS % (AUTO) 77.2 % (42-78); TOTAL CELLS COUNTED % (AUTO) 100 %; WHITE BLOOD COUNT 10.8 10^3/uL (4.0-10.5)
[2018-09-07 09:35] LABS: URINE AMPHETAMINES SCREEN NEGATIVE; URINE BARBITURATES SCREEN NEGATIVE; URINE BENZODIAZEPINES SCREEN NEGATIVE; URINE COCAINE SCREEN NEGATIVE; URINE MARIJUANA (THC) SCREEN NEGATIVE; URINE METHADONE SCREEN NEGATIVE; URINE PHENCYCLIDINE SCREEN NEGATIVE
[2018-09-07] MEDS ORDERED: CROMOLYN SODIUM NASAL SPRAY (5.2 MG/SPRAY) 26 ML NASL PRN (10:00)
--- NOTE | 2018-09-07 11:27 | L&D Progress Notes ---
PROGRESS NOTES Datetime Report Generated by CPN: 09/07/2018 11:26 PROGRESS NOTE Impression: Reassuring Heart Rate Procedures: Sterile Vag Exam Plan: Continue Present Management; Induction Vital Signs : Reviewed; Within Normal Limits Comment: Pitocin infusing, Ve 3/50/-2, AROM attempted, no return of fluid noted. GBS negative, pt plans an epidural. VAGINAL EXAM Dilatation: 3 Effacement: 5 Station: -2 Contractions: 2 Contractions: occassional LAST VAGINAL EXAM-NURSING Dilitation: 1.5 Dilitation: 1.5 Effacement: 70 Station: -2 MEMBRANES Membranes: Intact Membranes: Intact FETUS A FHR - Baseline: 145 Monitoring: External US Variability: Moderate 6-25bpm Accelerations: 15X15 Decelerations: None FHR Category: Category I SIGNATURE SIGNATURE: [id number];[id number];[id number] SIGNATURE: [id number];[id number] SIGNATURE: [id number] Assignment: Gerda Luther MD Signature: with User ID: [email or web address] : with User ID: [email or web address]
[2018-09-07] MEDS ORDERED: EPHEDRINE SULFATE INJ 50 MG/1 ML AMPULE ONE (16:16)
[2018-09-07] MEDS ORDERED: BUPIVACAINE HCL 0.25 % INJ/PF (2.5 MG/1 ML) 30 ML VIAL ONE (16:16)
[2018-09-07] MEDS ORDERED: FENTANYL/BUPIVACAINE/NS/PF 300 MCG/150 ML RTUINJ EPI ONE (16:16)
--- NOTE | 2018-09-07 16:21 | L&D Progress Notes ---
PROGRESS NOTES Datetime Report Generated by CPN: 09/07/2018 16:21 PROGRESS NOTE Impression: Reassuring Heart Rate Procedures: Sterile Vag Exam Plan: Continue Present Management; Induction; Anticipate Vaginal Delivery Vital Signs : Reviewed; Within Normal Limits Comment: IOL for IUGR, Pitocin infusing, Pt becoming uncomfortable w/ the contractions. Desires an epidural. GBS negative. VE 4/50/-1, posterior cervix. Position changes encouraged, may have an epidural. VAGINAL EXAM Dilatation: 4 Effacement: 50 Station: -1 Contractions: 1-2 Dilitation: 3.5 Effacement: 50 Station: -2 MEMBRANES Membranes: Ruptured FETUS A FHR - Baseline: 135 Monitoring: External US Variability: Moderate 6-25bpm Accelerations: 15X15 Decelerations: None FHR Category: Category I FETUS C SIGNATURE: [id number];[id number];[id number] Assignment: Gerda Luther MD Signature: with User ID: [email or web address] : with User ID: [email or web address]
[2018-09-07] MEDS ORDERED: ZOLPIDEM TARTRATE 5 MG TABLET PO PRN (18:53)
[2018-09-07] MEDS ORDERED: DIBUCAINE 1% OINTMENT 28 GM TP PRN (18:53)
[2018-09-07] MEDS ORDERED: BENZOCAINE/MENTHOL AEROSOL SPRAY 56 ML TOP PRN (18:53)
[2018-09-07] MEDS ORDERED: DIPH/PERTUSS(ACELL)/TETANUS VAC/PF 0.5 ML SYR (>=10YO) IM PRN (18:53)
[2018-09-07] MEDS ORDERED: ACETAMINOPHEN WITH CODEINE #3 TABLET PO PRN ×2 (18:53)
[2018-09-07] MEDS ORDERED: MEASLES,MUMPS&RUBELLA VACC/PF 0.5 ML VIAL SUBCUT PRN (18:53)
--- NOTE | 2018-09-07 19:37 | Warning Signs in Babies ---
VOD Warning Signs Datetime Report Generated by [facility]: 09/07/2018 19:37 VOD#608 -Warning Signs in Babies: Viewed with Parent(s)/Family (09/07/2018 19:34:Shahla Roldan RN)
--- NOTE | 2018-09-07 20:44 | Delivery Summary ---
Del Sum A-C Datetime Report Generated by CPN: 09/07/2018 20:44 DELIVERY PERSONNEL DELIVERY PERSONNEL: [id number] Delivery Doctor:: Gerda Luther MD Labor and Delivery Nurse:: Renée Anand RNcan piler Nurse:: EDENILSON Gordillo Nursery Nurse:: Isaura Angulo RN Nursery Nurse:: Trudi Parry RN Student Observers:: Jovan Zavala RN resident Operations Director/SHIRT CLOSER: ST Bailey Operations Director/SHIRT CLOSER: Sabien Estes CST Additional Personnel: : Wilda Coughlin, RNC MATERNAL INFORMATION Delivery Anesthesia: Epidural Medications After Delivery: Pitocin Bolus-Please Comment Meds After Delivery Comment: Pitocin 20 units in 1000 ml nss open for bolus Estimated Blood Loss (ml): 100 Maternal Complications: None Provider Comments: of a viable female at 1843 with an CHET presentation; APGARS 8, 9; no lacs LABOR SUMMARY EDC: 09/09/2018 00:00 No. Babies in Womb: 1 Attempted: No Labor Anesthesia: Epidural LABOR INFORMATION Reason for Induction: Intrauterine Growth Retardation Onset of Labor: 09/07/2018 16:00 Complete Dilatation: 09/07/2018 18:12 Oxytocin: Induction Group B Beta Strep: Negative Steroids Given: None Reason Steroids Not Administered: Not Applicable MEMBRANES Membranes Rupture Method: Spontaneous Rupture of Membranes: 09/07/2018 11:57 Length of Rupture (hr): 6.77 Amniotic Fluid Color: Clear Amniotic Fluid Amount: Scant Amniotic Fluid Odor: Normal STAGES OF LABOR Stage 1 hr: 2 Stage 1 min: 12 Stage 2 hr: 0 Stage 2 min: 31 Stage 3 hr: 0 Stage 3 min: 4 Total Time in Labor hr: 2 Total Time in Labor min: 47 VAGINAL DELIVERY Episiotomy: None Laceration #1: None Laceration Extension #1: N/A Laceration Repair: Not Applicable Sponge Count Correct: N/A; Yes Sharps Count Correct: Yes CSECTION DELIVERY Primary Indication: N/A Secondary Indication: N/A CSection Incidence: N/A Labor: N/A Elective: N/A CSection Incision: N/A BABY A INFORMATION Infant Delivery Date/Time: 09/07/2018 18:43 Method of Delivery: Vaginal Born in Route : No : N/A Forceps: N/A Vacuum Extraction: N/A Shoulder Dystocia : No PRESENTATION/POSITION BABY A Presentation: Cephalic Cephalic Presentation: Vertex Vertex Position: Right Occipital Anterior Breech Presentation: N/A PLACENTA INFORMATION BABY A Placenta Delivery Time : 09/07/2018 18:47 Placenta Method of Delivery: Spontaneous Placenta Status: Delivered SCORES BABY A Heart Rate 1 min: >100 bpm Resp Effort 1 min: Good Cry Reflex Irritability 1 min: Cough or Sneeze or Pulls Away Muscle Tone 1 min: Active Motion Color 1 min: Blue/Pale Resuscitation Effort 1 min: Tactile Stimulation SCORE 1 MIN: 8 Heart Rate 5 min: >100 bpm Resp Effort 5 min: Good Cry Reflex Irritability 5 min: Cough or Sneeze or Pulls Away Muscle Tone 5 min: Active Motion Color 5 min: Body [place], Extremities Blue Resuscitation Effort 5 min: Tactile Stimulation SCORE 5 MIN: 9 INFANT INFORMATION BABY A Gestational Age at Delivery: 39.5 Gestational Status: Full Term- 39- 40.6 Weeks Infant Outcome : Liveborn Infant Condition : Stable Sex: Female IDENTIFICATION BABY A Verification Date/Time: 09/07/2018 19:04 ID Band Number: [id number] Mother's Name Verified: Yes Infant RN Verifying Infant: B Baidy RN/ J Field RN WEIGHT/LENGTH BABY A Infant Birthweight (gm): 3077 Weight (lb): 6 Weight (oz): 13 Infant Length (in): 19.50 Length (cm): 49.53 CORD INFORMATION BABY A No. Cord Vessels: 3 Nuchal Cord : N/A Cord Blood Taken: Yes-For Eval (Mom's Blood Type - or O+) Suction: Mouth; Nose ASSESSMENT BABY A Complications: None Physical Findings at Delivery: Within Normal Limits Respirations: Appears Normal Skin to Skin: Yes Supervisor Doping/ALS Called : No Transferred To: Remains with Mother BABY B INFORMATION : N/A SIGNATURES Signature: with User ID: [email or web address]
[2018-09-07] MEDS: IBUPROFEN 800 MG TABLET PO SCH (23:20)
[2018-09-08] MEDS: IBUPROFEN 800 MG TABLET PO SCH ×3 (05:53→21:00)
[2018-09-08 06:55] LABS: HEMOGLOBIN 11.3 g/dL (12.0-15.5); MEAN CORPUSCULAR HEMOGLOBIN 26.8 pg (27.0-33.4); MEAN CORPUSCULAR HGB CONC 33.4 g/dL (32.0-36.0); MEAN CORPUSCULAR VOLUME 80 fl (80-97); PLATELET COUNT 293 10^3/uL (150-450); RED BLOOD COUNT 4.23 10^6/uL (3.72-5.28); WHITE BLOOD COUNT 10.2 10^3/uL (4.0-10.5)
[2018-09-08] MEDS: DOCUSATE SODIUM 100 MG CAPSULE PO SCH ×2 (10:29→18:33)
[2018-09-08] MEDS: SENNOSIDES/DOCUSATE 8.6-50 MG 1 EACH TABLET PO SCH (10:29)
[2018-09-08] MEDS: FERROUS SULFATE 325 MG TABLET PO SCH ×2 (10:29→18:33)
[2018-09-08] MEDS: PRENATAL VITAMIN W DHA CAPSULE PO SCH (10:30)
--- NOTE | 2018-09-08 10:48 | PDOC PROGRESS REPORT ---
Subjective-OB Progress Note for:: 09/08/18 Subjective: complaining of nasal congestion and resolved sore throat. states bleeding slowing, pain controlled with current meds. Physical Exam (OB) Vital Signs: Temp Pulse Resp BP Pulse Ox 98.3 F 68 16 110/70 96 09/08/18 07:39 09/08/18 07:39 09/08/18 07:39 09/08/18 07:39 09/08/18 07:39 Intake & Output 09/07/18 09/08/18 09/09/18 06:59 06:59 06:59 Intake Total 1000 Balance 1000 Weight 79.7 kg - Abdomen Description: Soft Hernia Present: No Fundal Description: Firm, Midline Fundal Height: u/u - u/2 - Abdominal Distension: No distension Tenderness: Nontender - Extremities Lower extremities: Phillip's sign - neg Calf: Normal, Nontender Objective-Diagnostic Laboratory: 09/08/18 06:47 09/08/18 06:47 WBC 10.2 RBC 4.23 Hgb 11.3 L Hct 34.0 L MCV 80 MCH 26.8 L MCHC 33.4 RDW 15.0 H Plt Count 293 Assessment and Plan(PN) - Assessment and Plan (1) Normal vaginal delivery Is this a current diagnosis for this admission?: Yes - Time Spent with Patient Time with patient: Less than 15 minutes Medications reviewed and adjusted accordingly: Yes - Disposition Anticipated Discharge: Home Within: within 24 hours
[2018-09-08] MEDS: GUAIFENESIN 600 MG TABLET.SA PO SCH ×2 (12:48→21:00)
[2018-09-08] MEDS: CITALOPRAM HYDROBROMIDE 20 MG TABLET PO SCH (12:48)
[2018-09-08] MEDS: BUSPIRONE HCL 10 MG TABLET PO SCH (14:47)
[2018-09-08] MEDS: BUPROPION HCL 100 MG TABLET PO SCH (14:48)
[2018-09-08] MEDS: PSEUDOEPHEDRINE HCL 30 MG TABLET PO PRN (16:31)
[2018-09-08] MEDS ORDERED: (PENDING PHARMACY ID) (Bupropion Hcl [Wellbutrin Sr 150 Mg Tablet] 1 TAB) PO SCH (22:00)
[2018-09-09] MEDS: IBUPROFEN 800 MG TABLET PO SCH (06:08)
[2018-09-09] MEDS: PSEUDOEPHEDRINE HCL 30 MG TABLET PO PRN (06:10)
[2018-09-09] MEDS: BUSPIRONE HCL 10 MG TABLET PO SCH ×2 (07:44→07:45)
[2018-09-09] MEDS: BUPROPION HCL 100 MG TABLET PO SCH (07:45)
[2018-09-09 09:03] VITALS: BP 114/73
--- NOTE | 2018-09-09 09:30 | PDOC DISCHARGE SUMMARY ---
Final Diagnosis Discharge Date: 09/09/18 - Final Diagnosis (1) Normal vaginal delivery Is this a current diagnosis for this admission?: Yes Discharge Data - Discharge Medication Prescriptions: Ibuprofen [Motrin 800 mg Tablet] 800 mg PO Q8HP PRN #60 tablet PRN Reason: Home Medications: Pnv W-O Ca No5/Fe Fumarate/FA [-U Multiple Vitamin Capsule] 1 each PO DAILY 10/24/11 Buspirone HCl [Buspar 10 mg Tablet] 15 mg PO TID 03/02/17 Bupropion HCl [Wellbutrin Sr 150 mg Tablet] 1 tab PO Q12 09/07/18 Citalopram Hydrobromide [Celexa 40 mg Tablet] 1 tab PO DAILY 09/07/18 Guaifenesin [Mucinex Sr 600 mg Tablet.sa] 600 mg PO Q12 tablet.sa 09/09/18 Ibuprofen [Motrin 800 mg Tablet] 800 mg PO Q8HP PRN #60 tablet 09/09/18 Procedures: NST Intrapartum Procedure(s): Spontaneous Vaginal Delivery - Diagnosis Test Laboratory: Temp Pulse Resp BP Pulse Ox 97.8 F 77 16 114/73 100 09/09/18 07:50 09/09/18 07:50 09/09/18 07:50 09/09/18 07:50 09/09/18 07:50 09/07/18 09/07/18 09/08/18 07:18 07:59 06:47 RBC 4.53 4.23 Hgb 12.0 11.3 L Hct 36.4 34.0 L Urine Opiates Screen NEGATIVE - Discharge information/Instructions Discharge Activity: Balance Activity w/Rest, Pelvic Rest Discharge Diet: Regular Disposition: HOME, SELF-CARE Follow up with: [facility] in: 4, Weeks
[2018-09-09] MEDS ORDERED: (PENDING PHARMACY ID) (Citalopram Hydrobromide [Celexa 40 Mg Tablet] 1 TAB) PO SCH (10:00)
[2018-09-09] MEDS: DOCUSATE SODIUM 100 MG CAPSULE PO SCH (10:29)
[2018-09-09] MEDS: PRENATAL VITAMIN W DHA CAPSULE PO SCH (10:29)
[2018-09-09] MEDS: GUAIFENESIN 600 MG TABLET.SA PO SCH (10:29)
[2018-09-09] MEDS: CITALOPRAM HYDROBROMIDE 20 MG TABLET PO SCH (10:29)
[2018-09-09] MEDS: FERROUS SULFATE 325 MG TABLET PO SCH (10:29)
[2018-09-09] MEDS: SENNOSIDES/DOCUSATE 8.6-50 MG 1 EACH TABLET PO SCH (10:29)
== END 2018-09-09 15:15 | disposition home or self-care (01) | DRG 807 ==
LOC: LR 07:12 → 2S 21:29
PROVIDERS: ADMIT Obstetrics & Gynecology; ATTEND Obstetrics & Gynecology
PROC: 10E0XZZ Delivery of Products of Conception, External Approach (ICD-10-PCS; principal; 2018-09-07)
PROC: 3E0234Z Introduction of Serum, Toxoid and Vaccine into Muscle, Percutaneous Approach (ICD-10-PCS; 2018-09-09)
PROC: 3E0234Z Introduction of Serum, Toxoid and Vaccine into Muscle, Percutaneous Approach (ICD-10-PCS; 2018-09-09)
DX: O36.5930 Maternal care for other known or suspected poor fetal growth, third trimester, not applicable or unspecified (principal); Z37.0 Single live birth; O99.52 Diseases of the respiratory system complicating childbirth; O99.344 Other mental disorders complicating childbirth; J45.909 Unspecified asthma, uncomplicated; F41.8 Other specified anxiety disorders; Z3A.39 39 weeks gestation of pregnancy; Z23 Encounter for immunization
CPT/HCPCS: 36415; 80307; 85025; 85027; 86592; 86850; 86900; 86901; 88307; 90471; 90686; 90715; 94760; G0008; J2590; J3010; J3490

== ENCOUNTER 2018-12-13 09:36 | Day surgery (SDC) | payer MEDICAID ==
[2018-12-12 11:36] LABS: HEMATOCRIT 39.4 % (36.0-47.0); MEAN CORPUSCULAR HEMOGLOBIN 26.9 pg (27.0-33.4); MEAN CORPUSCULAR HGB CONC 32.9 g/dL (32.0-36.0); MEAN CORPUSCULAR VOLUME 82 fl (80-97); PLATELET COUNT 323 10^3/uL (150-450); RED BLOOD COUNT 4.83 10^6/uL (3.72-5.28); RED CELL DISTRIBUTION WIDTH 15.7 % (11.5-14.0); WHITE BLOOD COUNT 7.4 10^3/uL (4.0-10.5)
[2018-12-12 11:51] LABS: APPEARANCE,URINE CLEAR; BILIRUBIN,URINE NEGATIVE (NEGATIVE); COLOR,URINE YELLOW; GLUCOSE, URINE NEGATIVE (NEGATIVE); KETONES,URINE NEGATIVE (NEGATIVE); LEUKOCYTE ESTERASE,URINE NEGATIVE (NEGATIVE); NITRITE,URINE NEGATIVE (NEGATIVE); PROTEIN,URINE NEGATIVE (NEGATIVE); URINE SPECIFIC GRAVITY 1.009; UROBILINOGEN,URINE NEGATIVE mg/dL (<2.0)
[2018-12-13] MEDS ORDERED: BUPIVACAINE HCL 0.25 % INJ/PF (2.5 MG/1 ML) 30 ML VIAL ONE (12:44)
[2018-12-13] MEDS ORDERED: KETOROLAC TROMETHAMINE 60 MG/2 ML SDV ONE (13:29)
[2018-12-13] MEDS ORDERED: FENTANYL CITRATE INJ/PF 100 MCG/2 ML AMPUL ONE ×2 (13:29→15:27)
[2018-12-13] MEDS ORDERED: ONDANSETRON HCL INJ/PF 4 MG/2 ML SDV ONE (13:30)
[2018-12-13] MEDS ORDERED: MIDAZOLAM 2 MG/2 ML INJ ONE (13:30)
[2018-12-13] MEDS ORDERED: DEXAMETHASONE SOD PHOSPHATE INJ 4 MG/1 ML VIAL ONE (13:30)
[2018-12-13] MEDS ORDERED: PROPOFOL INJ 200 MG/20 ML VIAL IV ONE (13:30)
[2018-12-13] MEDS ORDERED: ROCURONIUM BROMIDE INJ 50 MG/5 ML VIAL IV ONE (13:31)
[2018-12-13] MEDS ORDERED: SUCCINYLCHOLINE CHLORIDE INJ 200 MG/10 ML VIAL ONE (13:31)
[2018-12-13] MEDS ORDERED: MEPERIDINE HCL/PF INJ 25 MG/1 ML DISP.SYRIN IV PRN (13:36)
[2018-12-13] MEDS ORDERED: DIPHENHYDRAMINE HCL 50 MG/ML VIAL IV PRN (13:36)
[2018-12-13] MEDS ORDERED: ONDANSETRON HCL INJ/PF 4 MG/2 ML SDV IV PRN (13:36)
[2018-12-13] MEDS ORDERED: OXYCODONE-ACETAMINOPHEN 5-325 MG TABLET PO PRN ×2 (13:36)
[2018-12-13] MEDS ORDERED: MORPHINE SULFATE 10 MG/ML INJ IV PRN (13:36)
[2018-12-13] MEDS ORDERED: PROMETHAZINE HCL INJ 25 MG/1 ML VIAL IV PRN (13:36)
[2018-12-13] MEDS ORDERED: FENTANYL CITRATE INJ/PF 100 MCG/2 ML AMPUL IV PRN ×3 (13:36)
--- NOTE | 2018-12-13 15:02 | Operative Report ---
Operative Report DATE OF SURGERY: 12/13/18 PREOPERATIVE DIAGNOSIS: 1. Multiparity. 2. Complete family status. 3. Kimberly res permanent sterilization POSTOPERATIVE DIAGNOSIS: Same OPERATION: Laparoscopic bilateral partial salpingectomy SURGEON: SILVERIO SCHULER ANESTHESIA: GA TISSUE REMOVED OR ALTERED: Right and left partial fallopian tubes COMPLICATIONS: None ESTIMATED BLOOD LOSS: 10 ml INTRAOPERATIVE FINDINGS: Normal-appearing uterus, bilateral tubes and ovaries; grossly normal appearing liver PROCEDURE: The patient was taken to the operating room where general anesthesia was obtained without difficulty. She was then placed in dorsal supine lithotomy position and prepped and draped in the normal sterile fashion. [place] speculum was then placed in the patient's vagina and the anterior lip of the cervix grasped with a single-tooth tenaculum. An acorn uterine manipulator was then advanced into the uterus to provide a means of manipulation of the uterus. The speculum was then removed from the patient's cervix and vagina. Attention was then turned to the patient's abdomen where a 5 mm skin incision was then made in the umbilicus. The Optiview trocar with 0 laparoscope was then advanced without difficulty under direct visualization with the Optiview trocar. This was performed while tenting the abdominal wall. Intraperitoneal placement was confirmed by the direct visualization. Pneumoperitoneum was then obtained with approximately 4 L carbon dioxide gas. Survey of the patient's abdomen and pelvis revealed findings as noted above. Two 5 mm lateral ports were placed under direct visualization. The right fallopian tube was then identified and followed out to the fimbriated end. A PDS Endoloop was placed at the fimbriated end, abutting the ovary. The tube was the transected and the Endoloop cut. Hemostasis was noted. The right partial tube was removed through the trocar and handed off to the OR Tech. Attention was then turned to the left fallopian tube which was transected in the same manner. The tube was also handed to the OR Tech also. All operative sites were visualized and noted to be hemostatic. The CO2 gas wsa then turned off and allowed to escape from the patient's abdomen. All trocars were then removed. The skin at all trocar sites were closed with 4-0 Vicryl in a subcuticular fashion with overlying Dermabond. No antibiotics were indicated for this procedure. After completion of skin closure of the trocar sites attention was then turned to the vagina where the acorn uterine manipulator was removed and the bivalve speculum was replaced. Monsel's solution was applied to the tenaculum sites for hemostasis. The Mo nsel's sloution did not achieve hemostasis, therefore a [id number] using 3- 0 Vicryl was used to gain hemostasis. The speculum was then removed. Sponge, lap, needle and instrument counts were correct 2. The patient tolerated the procedure well and was taken to the recovery area awake and in stable condition.
[2018-12-13] MEDS ORDERED: MEPERIDINE HCL/PF INJ 25 MG/1 ML DISP.SYRIN ONE (15:11)
[2018-12-13] MEDS ORDERED: ACETAMINOPHEN 1,000 MG/100 ML RTUPB IV ONE (15:12)
[2018-12-13] MEDS ORDERED: OXYCODONE-ACETAMINOPHEN 5-325 MG TABLET PO ONE (15:30)
[2018-12-13] MEDS ORDERED: ONDANSETRON HCL INJ/PF 4 MG/2 ML SDV IV ONE (15:30)
[2018-12-13 17:05] VITALS: BP 113/69
== END 2018-12-13 17:05 | disposition home or self-care (01) ==
LOC: OROUT 09:36
PROVIDERS: ATTEND Obstetrics & Gynecology
DX: Z30.2 Encounter for sterilization (principal); J45.909 Unspecified asthma, uncomplicated; Z87.891 Personal history of nicotine dependence; Z79.899 Other long term (current) drug therapy
CPT/HCPCS: 36415; 85027; 81025; 81001; 88302 ×2; 58670; J2250; J3490; J1100; J1885; J3010; J2175; J0330; J2405; S0020; J2704; J0131; 851

== ENCOUNTER 2019-07-24 23:46 | Emergency (ER) | payer MEDICAID ==
--- NOTE | 2019-07-25 01:28 | RADIOLOGY REPORT (SQ) ---
EXAM DESCRIPTION: XR FOOT 1-2 VIEWS COMPLETED DATE/TME: 07/25/2019 00:00 CLINICAL HISTORY: 29 years, Female, bone pain COMPARISON: None. NUMBER OF VIEWS: Three TECHNIQUE: Three views of the left foot LIMITATIONS: None. FINDINGS: There is no acute fracture or dislocation. No erosion or periosteal reaction. No radiopaque foreign body. No large soft tissue swelling. IMPRESSION: No acute fracture or dislocation copyright 2010 [employer]- All Rights Reserved
--- NOTE | 2019-07-25 01:48 | RADIOLOGY REPORT (SQ) ---
EXAM DESCRIPTION: XR ANKLE 3 OR MORE VIEWS COMPLETED DATE/TME: 07/25/2019 00:00 CLINICAL HISTORY: 29 years, Female, injury/ swelling COMPARISON: None. NUMBER OF VIEWS: Three TECHNIQUE: Three views of the left ankle LIMITATIONS: None. FINDINGS: No acute fracture or dislocation. The ankle mortise is intact. There is soft tissue swelling along the lateral aspect of the ankle. No radiopaque foreign body. IMPRESSION: No acute fracture or dislocation. copyright 2010 [employer]- All Rights Reserved
[2019-07-25] MEDS ORDERED: ACETAMINOPHEN 325 MG TABLET PO ONE (03:39)
[2019-07-25] MEDS ORDERED: SULFAMETHOXAZOLE/TRIMETHOPRIM 800-160 MG TABLET PO ONE (06:34)
[2019-07-25] MEDS ORDERED: CEPHALEXIN 500 MG CAPSULE PO ONE (06:34)
--- NOTE | 2019-07-25 06:40 | ER Document Report ---
ED General - General Chief Complaint: Ankle Injury Stated Complaint: LEFT ANKLE INJURY/FALL Time Seen by Provider: 07/25/19 06:08 Primary Care Provider: HOWARD HANNON MD [Primary Care Provider] - Follow up as needed Notes: 29-year-old female presents emergency department complaining of left ankle pain. Patient states that her ankle started started hurting approximately 5 days ago when her significant other grabbed it during sex, states that it hurt again when he grabbed it within the past day. She has noticed that there is an area of redness and swelling to the lateral aspect of her left ankle and there is been some drainage from here as well. Significant other states that he thinks she must have turned it while wearing her boat shoes. Patient denies any fevers or distinct injury that she can remember. TRAVEL OUTSIDE OF THE [place] IN LAST 30 DAYS: No - Related Data Allergies/Adverse Reactions: No Known Allergies Allergy (Verified 12/13/18 10:20) Home Medications: buprobrion, gabapentin, citalopram Past Medical History - General Information source: Patient, Friend - Social History Smoking Status: Never Smoker Frequency of alcohol use: None Drug Abuse: Marijuana Family History: Reviewed & Not Pertinent Patient has suicidal ideation: No Patient has homicidal ideation: No - Past Medical History Cardiac Medical History: Denies: Hx Coronary Artery Disease, Hx Heart Attack, Hx Hypertension Pulmonary Medical History: Reports: Hx Asthma - winter months Denies: Hx Bronchitis, Hx COPD, Hx Pneumonia Neurological Medical History: Denies: Hx Cerebrovascular Accident, Hx Seizures Renal/ Medical History: Denies: Hx Peritoneal Dialysis Musculoskeletal Medical History: Denies Hx Arthritis - Immunizations Hx Diphtheria, Pertussis, Tetanus Vaccination: Yes Hx Pneumococcal Vaccination: 07/25/00 Review of Systems - Review of Systems Constitutional: No symptoms reported Cardiovascular: No symptoms reported Respiratory: No symptoms reported Gastrointestinal: No symptoms reported Female Genitourinary: See HPI Skin: See HPI Neurological/Psychological: No symptoms reported Physical Exam - Vital signs Vitals: Temp Pulse Resp BP Pulse Ox 98.1 F 81 18 119/84 99 07/25/19 00:17 07/25/19 00:17 07/25/19 00:17 07/25/19 00:17 07/25/19 00:17 Interpretation: Normal - General General appearance: Appears well, Alert In distress: None - HEENT Head: Normocephalic, Atraumatic Eyes: Normal Pupils: PERRL - Respiratory Respiratory status: No respiratory distress - Cardiovascular Pulses: Normal: Posterior tibial, Dorsalis pedis Normal capillary refill: Yes - Extremities Notes: Left foot is moderately swollen, lateral aspect of left ankle is erythematous with an abrasion noted over the lateral malleolus, tender to palpation, erythema spreads over approximately 6 cm, there is no lymphangitic streaking, there is no fluctuance. Ultrasound at bedside does not reveal any discrete fluid collection. No evidence of abscess. Swelling extends the dorsal aspect of her foot, does not extend to the plantar aspect of her foot. Does not extend to her toes. Patient does have full range of motion. There is no discrete bony tenderness to palpation. Course - Re-evaluation Re-evalutation: 07/25/19 06:41 No abscess on bedside ultrasound, treat with antibiotics in the form Bactrim and Keflex. Discharged home. - Vital Signs Vital signs: Temp Pulse Resp BP Pulse Ox 98.1 F 81 18 119/84 99 07/25/19 00:17 07/25/19 00:17 07/25/19 00:17 07/25/19 00:17 07/25/19 00:17 Discharge - Discharge Clinical Impression: Cellulitis of left ankle Condition: Stable Disposition: HOME, SELF-CARE Additional Instructions: Cellulitis You have an infection of your skin and underlying soft tissues called cellulitis. This is due to bacteria, which can enter through any break in the skin, or even through an irritated hair follicle. Untreated, cellulitis will usually worsen. Antibiotics are required. Usually, warm packs or warm soaks, and elevation of the infected area are recommended. You should start getting better within 24 to 36 hours. Most infections respond quickly to the right medication. Follow-up care is important, however, to check for abscess (boil) formation, unsuspected foreign body, or resistant infection. If you develop fever, chills, or if the area of infection is becoming rapidly more swollen or painful, call the doctor at once. Epsom Salt Soaks Soak the wound area in a container of warm epsom salt water. If you can't get the wound area into a bucket or sullivan, use a folded towel soaked in the epsom salt solution and apply to the area. Use clean hot tap water (about the temperature of a very warm bath), mixing in about one (1) teaspoon for every pint of water. Two gallon --> 16 teaspoons Epsom Salts One gallon --> 8 teaspoons Epsom Salts Two quarts --> 4 teaspoons Epsom Salts One quart --> 2 teaspoons Epsom Salts Soak the wound for about 20 minutes while gently moving it around in the water. Repeat this four (4) times a day. Prescriptions: Sulfamethoxazole/Trimethoprim [Bactrim Ds Tablet] 1 each PO BID #14 tablet Cephalexin Monohydrate [Keflex 500 mg Capsule] 1,000 mg PO BID #28 capsule Referrals: HOWARD HANNON MD [Primary Care Provider] - Follow up as needed
[2019-07-25 07:48] VITALS: BP 124/63
== END 2019-07-25 07:39 | disposition home or self-care (01) ==
LOC: ER 23:46
DX: L03.116 Cellulitis of left lower limb (principal); S99.912A Unspecified injury of left ankle, initial encounter; M25.572 Pain in left ankle and joints of left foot; X58.XXXA Exposure to other specified factors, initial encounter; J45.909 Unspecified asthma, uncomplicated
CPT/HCPCS: 99283; 73610; 73620; J3490 ×2

== ENCOUNTER 2019-07-27 12:11 | Emergency (ER) | payer MEDICAID ==
[2019-07-27] MEDS ORDERED: CLINDAMYCIN 600 MG/D5W RTU 600 MG/50 ML RTUPB IV ONE (13:36)
--- NOTE | 2019-07-27 13:39 | ER Document Report ---
ED Medical Screen (RME) - General Chief Complaint: Ankle Swelling Stated Complaint: POSSIBLE ANKLE INFECTION Time Seen by Provider: 07/27/19 13:32 Primary Care Provider: HOWARD HANNON MD [Primary Care Provider] - Follow up as needed Notes: 29-year-old female presents with a significant cellulitis on her left lower extremity. Was seen here on 07/24 and discharged after an acute injury. Patient states in the last 2 days she has had significant swelling, pitting edema, purulent oozing discharge from the left lateral malleolus, and worsening redness. She marked the redness with a pen. Patient denies pain at rest but significant pain when bearing weight. Denies fevers but she has been alternating Tylenol and Motrin [id number], denies chills or nausea or vomiting. Exam: 1+ pitting edema of the left foot and distal left lower extremity, warmth and erythema that extends up to the of the mid tibia, weeping purulent wound on the left lateral malleolus, trace DP pulse palpated, brisk cap refill I have greeted and performed a rapid initial assessment of this patient. A comprehensive ED assessment and evaluation of the patient, analysis of test results and completion of medical decision making process will be conducted by an additional ED providers. TRAVEL OUTSIDE OF THE [place] IN LAST 30 DAYS: No - Related Data Allergies/Adverse Reactions: No Known Allergies Allergy (Verified 07/27/19 13:27) Past Medical History - Past Medical History Cardiac Medical History: Denies: Hx Coronary Artery Disease, Hx Heart Attack, Hx Hypertension Pulmonary Medical History: Reports: Hx Asthma - winter months Denies: Hx Bronchitis, Hx COPD, Hx Pneumonia Neurological Medical History: Denies: Hx Cerebrovascular Accident, Hx Seizures Renal/ Medical History: Denies: Hx Peritoneal Dialysis Musculoskeltal Medical History: Denies Hx Arthritis - Immunizations Hx Diphtheria, Pertussis, Tetanus Vaccination: Yes Physical Exam - Vital signs Vitals: Temp Pulse Resp BP Pulse Ox 98 F 104 H 18 113/71 100 07/27/19 13:29 07/27/19 13:29 07/27/19 13:29 07/27/19 13:29 07/27/19 13:29 Course - Vital Signs Vital signs: Temp Pulse Resp BP Pulse Ox 98 F 104 H 18 113/71 100 07/27/19 13:07/27/19 13:29 07/27/19 13:29 07/27/19 13:07/27/19 13:29 Doctor's Discharge - Discharge Referrals: HOWARD HANNON MD [Primary Care Provider] - Follow up as needed
[2019-07-27 14:32] LABS: HEMATOCRIT 39.1 % (36.0-47.0); MEAN CORPUSCULAR HEMOGLOBIN 27.1 pg (27.0-33.4); MEAN CORPUSCULAR HGB CONC 33.3 g/dL (32.0-36.0); MEAN CORPUSCULAR VOLUME 81 fl (80-97); PLATELET COUNT 329 10^3/uL (150-450); RED CELL DISTRIBUTION WIDTH 14.9 % (11.5-14.0); WHITE BLOOD COUNT 22.6 10^3/uL (4.0-10.5)
[2019-07-27 14:44] LABS: ALBUMIN 3.8 g/dL (3.5-5.0); ALKALINE PHOSPHATASE 147 U/L (38-126); ANION GAP 11 (5-19); ASPARTATE AMINO TRANSFERASE 26 U/L (14-36); BILIRUBIN,DIRECT 0.4 mg/dL (0.0-0.4); BILIRUBIN,TOTAL 0.7 mg/dL (0.2-1.3); BLOOD UREA NITROGEN 15 mg/dL (7-20); CALCIUM 9.4 mg/dL (8.4-10.2); CARBON DIOXIDE 26 mmol/L (22-30); CHLORIDE 102 mmol/L (98-107); GLUCOSE 96 mg/dL (75-110); POTASSIUM 3.6 mmol/L (3.6-5.0); TOTAL PROTEIN 7.4 g/dL (6.3-8.2)
[2019-07-27 15:02] LABS: ABSOLUTE MONOCYTES # (MANUAL) 0.7 10^3/uL (0.1-1.4); BASOPHILS % (MANUAL) 0 % (0-2); EOSINOPHILS % (MANUAL) 3 % (0-6); LYMPHOCYTES % (MANUAL) 9 % (13-45); MONOCYTES % (MANUAL) 3 % (3-13); SEGMENTED NEUTROPHILS % (MAN) 85 % (42-78); TOTAL CELLS COUNTED 100
[2019-07-27 15:04] LABS: ANISOCYTOSIS SLIGHT; PLATELET COMMENT ADEQUATE; PLATELET LARGE PRESENT
[2019-07-27 15:05] LABS: TEAR DROP CELLS SLIGHT
--- NOTE | 2019-07-27 15:27 | RADIOLOGY REPORT (SQ) ---
EXAM DESCRIPTION: ANKLE LEFT AP/LATERAL COMPLETED DATE/TIME: 07/27/2019 2:58 pm REASON FOR STUDY: infection assess for air COMPARISON: None. NUMBER OF VIEWS: Two views. TECHNIQUE: AP and lateral radiographic images acquired of the left ankle. LIMITATIONS: None. FINDINGS: MINERALIZATION: Normal. BONES: No acute fracture or dislocation. No worrisome bone lesions. JOINTS: No effusions. SOFT TISSUES: Soft tissue swelling about the ankle and foot. No radiopaque foreign body. No definit angelo subcutaneous gas. OTHER: No other significant finding. IMPRESSION: Soft tissue swelling about the ankle and foot. No definitive subcutaneous gas. No acute bony abnormality. TECHNICAL DOCUMENTATION: JOB ID: [id number] [employer]- All Rights Reserved Reading location - IP/workstation name: [email or web address]
--- NOTE | 2019-07-27 15:29 | RADIOLOGY REPORT (SQ) ---
EXAM DESCRIPTION: FOOT LEFT COMPLETE COMPLETED DATE/TIME: 07/27/2019 2:58 pm REASON FOR STUDY: infection assess for air COMPARISON: 07/25/2019 NUMBER OF VIEWS: Three views. TECHNIQUE: AP, lateral and oblique radiographic images acquired of the left foot. LIMITATIONS: None. FINDINGS: MINERALIZATION: Normal. BONES: No acute fracture or dislocation. No worrisome bone lesions. JOINTS: No effusions. SOFT TISSUES: Excessive soft tissue swelling about the foot. No definitive subcutaneous gas. OTHER: No other significant finding. IMPRESSION: Extensive soft tissue swelling about the foot. No definitive subcutaneous gas. No radi opaque foreign body. TECHNICAL DOCUMENTATION: JOB ID: [id number] [employer]- All Rights Reserved Reading location - IP/workstation name: [email or web address]
[2019-07-27] MEDS ORDERED: ACETAMINOPHEN 325 MG TABLET PO ONE (15:56)
[2019-07-27 16:30] LABS: APPEARANCE,URINE SLIGHTLY-CLOUDY; BILIRUBIN,URINE SMALL (NEGATIVE); COLOR,URINE AMBER; GLUCOSE, URINE NEGATIVE (NEGATIVE); KETONES,URINE TRACE mg/dL (NEGATIVE); LEUKOCYTE ESTERASE,URINE NEGATIVE (NEGATIVE); NITRITE,URINE NEGATIVE (NEGATIVE); PROTEIN,URINE >=500 mg/dL (NEGATIVE); URINE SPECIFIC GRAVITY 1.038
[2019-07-27 16:33] VITALS: BP 111/61
== END 2019-07-27 17:56 | disposition left against medical advice (07) ==
LOC: ER 12:11
DX: M79.662 Pain in left lower leg (principal)
CPT/HCPCS: 99281; 96365; 36415; 87040; 87070; 87205; 85025; 87075; 87077; 80053; 81001; 87150 ×26; 73600; 73630; J3490; S0077